=== PATIENT | female | born 1990 | race Hispanic/Latino ===

== ENCOUNTER 2024-09-29 16:54 | Emergency (ER) | payer OTHER ==
[~2024-09-29] VITALS: Ht 160 cm; Wt 104.3 kg
[2024-09-29 17:11] VITALS: PULSE 92; RESP 18; TEMP 97.9
[2024-09-29] MEDS: LIDOCAINE HCL 2% LOCAL 20 ML VIAL INJ STA (18:17)
[2024-09-29] MEDS: ONDANSETRON HCL 4 MG ORAL DISINTEGRATING TAB PO ONE (18:17)
[2024-09-29] MEDS: HYDROCODONE/APAP 5MG-325MG TAB PO ONE (18:18)
[2024-09-29] MEDS ORDERED: IBUPROFEN200 MG PO (18:21)
[2024-09-29] MEDS ORDERED: ONDANSETRON ODT4 MG PO (18:21)
[2024-09-29] MEDS ORDERED: ACETAMINOPHEN-1 EAC4 PO (18:21)
[2024-09-29 20:15] VITALS: BP 155/98; PULSE 92; RESP 18; TEMP 97.9; O2SAT 96
== END 2024-09-29 20:15 | disposition home or self-care (01) ==
LOC: FSED 17:00
DX: S52.125A Nondisplaced fracture of head of left radius, initial encounter for closed fracture (principal); V86.59XA Driver of other special all-terrain or other off-road motor vehicle injured in nontraffic accident, initial encounter; Y92.89 Other specified places as the place of occurrence of the external cause; I10 Essential (primary) hypertension; G40.909 Epilepsy, unspecified, not intractable, without status epilepticus
CPT/HCPCS: 24605; 29125; 73070; 73080; 73090; 73110; 99283; J2003; Q0162